=== PATIENT | female | born 1990 | race Caucasian/White ===

== ENCOUNTER → 2018-07-20 | Outpatient (CLI) | payer BC | LOC: COL.CARD 08:41 | DX: R00.0 Tachycardia, unspecified (principal); R07.9 Chest pain, unspecified; R42 Dizziness and giddiness ==

== ENCOUNTER → 2019-02-25 | Outpatient (CLI) | payer BC | LOC: SUN.DIA 08:33 | DX: O24.419 Gestational diabetes mellitus in pregnancy, unspecified control (principal); Z3A.20 20 weeks gestation of pregnancy | CPT/HCPCS: G0108 ==

== ENCOUNTER → 2019-03-17 | Outpatient (CLI) | payer BC | LOC: SUN.DIA 15:14 | DX: O24.419 Gestational diabetes mellitus in pregnancy, unspecified control (principal); Z3A.35 35 weeks gestation of pregnancy | CPT/HCPCS: G0108 ==

== ENCOUNTER → 2019-04-07 | Outpatient (CLI) | payer BC | LOC: DIA.ED 08:45 → SUN.DIA 15:01 | DX: O24.419 Gestational diabetes mellitus in pregnancy, unspecified control (principal); Z3A.35 35 weeks gestation of pregnancy | CPT/HCPCS: G0108 ==

== ENCOUNTER 2019-05-11 07:03 | Inpatient (IN) | payer BC ==
[~2019-05-11] VITALS: Ht 165.1 cm; Wt 77.3 kg
[2019-05-11] VITALS (44 sets, daily range): BP systolic 112–157; BP diastolic 57–97; PULSE 78–150; TEMP 97.3–100.2
[2019-05-11] MEDS ORDERED: PRENATAL MVI (07:27)
--- NOTE | 2019-05-11 07:45 | NUR ---
Blood sugar upon admission 91.
[2019-05-11 08:15] LABS: BASO % 0.3 % (0.0-2.0); EOS % 0.3 % (0-4.0); GRAN # 5.5 (1.4-6.5); GRAN % 69.6 % (42.2-75.2); HEMATOCRIT 35.8 % (37.0-47.0); HEMOGLOBIN 12.5 g/dl (12.5-16.0); LYMPH # 1.7 (1.2-3.4); LYMPH % 21.4 % (20.0-51.0); MEAN CELL VOLUME 88 fl (80.0-100.0); MEAN CORPUSCULAR HEMOGLOBIN 31 pg (27.0-31.0); MEAN CORPUSCULAR HGB CONC 35 g/dl (33.0-37.0); MEAN PLATELET VOLUME 12.2 fl (7.4-10.4); MONO # 0.6 (0.1-0.6); MONO % 7.9 % (1.7-9.3); PLATELET COUNT 173 K/mm3 (130-400); RED BLOOD COUNT 4.06 M/mm3 (4.10-5.30); REDCELL DISTRIBUTION WIDTH-CV 12.4 % (11.5-14.5)
--- NOTE | 2019-05-11 10:20 | NUR ---
BS 69. Apple juice given.
--- NOTE | 2019-05-11 12:48 | NUR ---
BS 79
--- NOTE | 2019-05-11 14:00 | NUR ---
Pt sitting upright to replace epidural. Difficulty tracing FHR due to maternal position. RN at bedside. FHR audible. 1412-Test dose administered by Barb Page CRNA. No adverse effects noted.
--- NOTE | 2019-05-11 14:45 | NUR ---
BS 92
--- NOTE | 2019-05-11 18:53 | NUR ---
1545- Patient 10cm at this time. 1645- Initial push. 182- Bedside shift report received from Thom Gorman RN. Dr. oFnseca at bedside, ready for vaginal delivery. 184- Oral temperature 100.2 at this time. 185- Spontaneous delivery of viable male . Cord pH collected. No gases. 1855- Spontaneous delivery of intact placenta, pitocin infusing at 333cc/hr. 1858- Methergine 0.2 given IM route on left outer thigh per Dr. oFnseca orders. 190- remains skin to skin with patient. Apgars 8,9,9 per nursery nurse. Patient bleeding WNL per Dr. Fonseca, fundus F/U/scant flow no clots. 2nd degree laceration repaired per Dr. Fonseca.
[2019-05-12] VITALS: BP 138/79; PULSE 81; TEMP 98.7
[2019-05-12 04:00] VITALS: BP 110/78; PULSE 69; TEMP 97.7
[2019-05-12 08:55] VITALS: BP 118/72; PULSE 79; TEMP 98.5
--- NOTE | 2019-05-12 10:37 | NUR ---
Initial visit attempt; Family resting, Caustic Loader left card of congratulations for the of their son along with information regarding the availability of spiritual care around the clock at [facility].
[2019-05-12 16:53] VITALS: BP 118/65; PULSE 85; TEMP 98.1
[2019-05-12 19:35] VITALS: BP 128/66; PULSE 84; TEMP 98.2
[2019-05-13 06:48] VITALS: BP 112/56; PULSE 68; TEMP 97.8
[2019-05-13] MEDS ORDERED: MOTRIN 600600 MG/TAB PO (08:20)
[2019-05-13] MEDS ORDERED: PERCOCET 325 MG1 TA2 PO (08:21)
== END 2019-05-13 12:55 | disposition home or self-care (01) | DRG 807 ==
LOC: LDR 07:03 → OB 22:24
PROVIDERS: ADMIT Obstetrics & Gynecology
PROC: 10E0XZZ Delivery of Products of Conception, External Approach (ICD-10-PCS; principal; 2019-05-11)
PROC: 0KQM0ZZ Repair Perineum Muscle, Open Approach (ICD-10-PCS; 2019-05-11)
PROC: 10907ZC Drainage of Amniotic Fluid, Therapeutic from Products of Conception, Via Natural or Artificial Opening (ICD-10-PCS; 2019-05-11)
PROC: 3E033VJ Introduction of Other Hormone into Peripheral Vein, Percutaneous Approach (ICD-10-PCS; 2019-05-11)
DX: O24.420 Gestational diabetes mellitus in childbirth, diet controlled (principal); Z37.0 Single live birth; O99.824 Streptococcus B carrier state complicating childbirth; O70.1 Second degree perineal laceration during delivery; O69.1XX0 Labor and delivery complicated by cord around neck, with compression, not applicable or unspecified; Z3A.39 39 weeks gestation of pregnancy
CPT/HCPCS: J2210; J2400; J2405; J2540; J2590; J7120

== ENCOUNTER → 2019-05-18 | Outpatient (CLI) | payer BC ==
[~2019-05-18] MED LIST: MOTRIN 600600 MG/TAB PO; PERCOCET 325 MG1 TA2 PO; PRENATAL MVI
--- NOTE | 2019-05-18 12:44 | NUR ---
Pt, Keira Martinez, presents to walk in clinic with 7 day old baby boy, Stephania Martinez, for a evaluation and to try to latch without the nipple shield. Stephania was born on [birth year] by and weighed 8#4.3oz (3750 gms). Pt had to use nipple shield for latch difficulty. Stephania was seen by Dr. Greer yesterday and his weight was reported to be 7#11.5oz. Today Stephania weighs 7#10.8oz (3482 gms). Pt reports voids and stools are WNL, milk supply is established, pt wearing shells between feedings and is leaking. Pt attempts, with LC help, to latch baby without nipple but unsuccessfull. Baby breastfeeds bilaterally with shield and has a post feed gain of 40gms. POC: Pt advised to continue every 2-3 hours, or more on demand. Consider supplement with about 1oz EBM after breastfeedings that Stephania is not content. Pump after to have supplement as needed. F/U: Two days with this LC. Questions invited and answered.
== END ==
LOC: LAC 10:37
DX: Z39.1 Encounter for care and examination of lactating mother (principal); Z71.89 Other specified counseling

== ENCOUNTER → 2019-05-20 | Outpatient (CLI) | payer BC ==
--- NOTE | 2019-05-20 13:28 | NUR ---
Pt, Keira Martinez, presents for outpatient consult with 9 day old baby boy, Stephania Martinez and her spouse, Conner Martinez. They are being seen because Stephania had a low weight and intake at the walk-in clinic two days ago. Stephania was born on [birth year] by and weighed 8#4.3oz (3751 gms). At his doctor appt on 05/17/19 he weighed 7#11.5oz, and at clinic on 05/18/19 he weighed 7#10.8oz. Pt is using a nipple shield for feedings. Pt was advised to breastfeed, consider pumping and supplementing at feeding Stephania did not act content after, as he was nursing quite frequently. Today Stephania weighs 7#15.9oz, for a gain of 5.1oz over the last 2 days. Pt states she has not pumped or supplemented Stephania. She has continued with the nipple shield, states she feels breast fullness, and that Stephania has and an increase in voids and stools. At this feeding pt is instructed on latching without nipple shield; he latches pretty easily when pt compresses areola into Stephania's mouth and helps keep his jaw open a bit wider. After without the nipple shield Stephania had a weight gain of 1.9oz (54 gms). POC: Continue ad abbe. F/U: Anticipate at clinic on 05/25/19. Questions invited and answered.
== END ==
LOC: LAC 12:56
DX: Z39.1 Encounter for care and examination of lactating mother (principal); Z71.89 Other specified counseling

== ENCOUNTER → 2019-05-25 | Outpatient (CLI) | payer BC ==
--- NOTE | 2019-05-25 19:00 | NUR ---
Pt, Keira Martinez, present to walk-in clinic with 14 day old baby boy, Stephania Martinez for a evaluation since weaning from the nipple shield. Stephania was born on [birth year] and weighed 8#4.3oz. He was seen at clinic on 05/18/19 and he weighed 7#10.8oz. His intake per pre and post feed weights was 40gms. He returned for a consult on 05/20/19, weighing 7#15.9oz. We were able to get him to nurse without the nipple shield and he had a transfer of 1.9oz. Today Stephania weighs 8#10.9oz (3936 gms). He has been nursing without the shield. After nursing today Stephania had a post feed gain of 3.1oz. POC: continue ad abbe. Consider pumping and bottle introduction at 3-4 weeks of age to prepare for return to work. F/U: Walk in clinic as desired, [employer] as scheduled for well baby exams. Questions invited and answered.
== END ==
LOC: LAC 10:42
DX: Z39.1 Encounter for care and examination of lactating mother (principal); Z71.89 Other specified counseling

== ENCOUNTER → 2019-06-01 | Outpatient (CLI) | payer BC ==
--- NOTE | 2019-06-01 12:10 | NUR ---
Pt, Keira Martinez presents to walk-in clinic with 3 week old baby boy, Stephania Martinez, for a weight check. Stephania was born on [birth year] and weighed 8#4.3oz. They have been followed in the clinic as Stephania initially had a slow weight gain and he was needing to use nipple shield. They have weaned from the shield and are direct latching each feeding. Today Stephania weighs 9#11.9oz, for a gain of 1#1oz over the last week. Questions about plugged milk duct answered. POC: Continue BF ad abbe, consider pumping to save milk for working. F/U: Stephania has his one month appt next week, clinic as desired.
== END ==
LOC: OLC 11:48
DX: Z39.1 Encounter for care and examination of lactating mother (principal); Z71.89 Other specified counseling

== ENCOUNTER 2020-07-29 18:14 | Emergency (ER) | payer BC ==
[~2020-07-29] VITALS: Ht 165.1 cm; Wt 70.5 kg
[2020-07-29 19:00] LABS: BASO # 0.1 (0.0-0.2); BASO % 0.4 % (0.0-2.0); EOS # 0.1 (0.0-0.7); EOS % 0.5 % (0-4.0); HEMATOCRIT 41.4 % (37.0-47.0); HEMOGLOBIN 14.2 g/dl (12.5-16.0); LYMPH # 2.6 (1.2-3.4); LYMPH % 18.9 % (20.0-51.0); MEAN CELL VOLUME 88 fl (80.0-100.0); MEAN CORPUSCULAR HEMOGLOBIN 30 pg (27.0-31.0); MEAN CORPUSCULAR HGB CONC 34 g/dl (33.0-37.0); MEAN PLATELET VOLUME 9.5 fl (7.4-10.4); MONO # 0.8 (0.1-0.6); MONO % 5.8 % (1.7-9.3); PLATELET COUNT 314 K/mm3 (130-400); RED BLOOD COUNT 4.72 M/mm3 (4.10-5.30); REDCELL DISTRIBUTION WIDTH-CV 11.7 % (11.5-14.5)
[2020-07-29 19:24] LABS: BILIRUBIN,TOTAL 0.3 mg/dL (0.0-1.0); CALCIUM 9.4 mg/dL (8.4-10.2); CREATININE, serum 0.84 (0.52-1.25); POTASSIUM 3.5 mmol/L (3.4-5.0); TOTAL PROTEIN 8.3 gm/dL (6.4-8.2)
[2020-07-29 19:54] LABS: TSH w REFLEX 1.52 uIU/mL (0.465-4.680)
[2020-07-29 19:58] LABS: COLLECTION METHOD CLEAN CATCH
[2020-07-29 20:05] LABS: PH 6 (5-8); SQUAMOUS EPITHELIAL 0-2 /hpf; URINE APPEARANCE Clear; URINE BACTERIA Rare /hpf; URINE BILIRUBIN Negative (NEGATIVE); URINE BLOOD Negative (NEGATIVE); URINE COLOR Straw; URINE GLUCOSE Negative (NEGATIVE); URINE KETONE Trace (NEGATIVE); URINE LEUKOCYTE ESTERASE Negative (NEGATIVE); URINE NITRATE Negative (NEGATIVE); URINE PROTEIN(semi-quant) Negative (NEGATIVE); URINE RBC 0-2 /hpf; URINE UROBILINOGEN Negative (NEGATIVE)
[2020-07-29 21:00] VITALS: BP 111/73; PULSE 86; TEMP 98.6
== END 2020-07-29 21:10 | disposition home or self-care (01) ==
LOC: COL.ER 18:14
PROVIDERS: Emergency Medicine
DX: R00.2 Palpitations (principal); R00.0 Tachycardia, unspecified; R07.9 Chest pain, unspecified; R42 Dizziness and giddiness; Z32.02 Encounter for pregnancy test, result negative; Z82.49 Family history of ischemic heart disease and other diseases of the circulatory system; Z79.810 Long term (current) use of selective estrogen receptor modulators (SERMs)
CPT/HCPCS: J1885; J7030

== ENCOUNTER 2021-12-27 12:24 | Emergency (ER) | payer OTHER ==
[~2021-12-27] VITALS: Ht 165.1 cm; Wt 75.9 kg
[2021-12-27 12:46] VITALS: TEMP 99.4
[2021-12-27 12:51] LABS: COLLECTION METHOD CLEAN CATCH
[2021-12-27 12:57] LABS: MUCOUS Present (NOT PRESENT); PH 6 (5-8); URINE APPEARANCE Clear (CLEAR/HAZY); URINE BACTERIA Rare /hpf (NONE SEEN); URINE BILIRUBIN Negative (NEGATIVE); URINE BLOOD Negative (NEGATIVE); URINE COLOR Yellow (YELLOW); URINE GLUCOSE Negative (NEGATIVE); URINE KETONE 2+ (NEGATIVE); URINE LEUKOCYTE ESTERASE Negative (NEGATIVE); URINE NITRATE Negative (NEGATIVE); URINE PROTEIN(semi-quant) Negative (NEGATIVE); URINE RBC 0-2 /hpf (0-2); URINE UROBILINOGEN Negative (NEGATIVE)
[2021-12-27 13:24] LABS: BASO % 0.4 % (0.0-2.0); EOS # 0.1 K/mm3 (0.0-0.7); EOS % 0.6 % (0.0-4.0); GRAN # 8.3 K/mm3 (1.4-6.5); GRAN % 82.9 % (42.2-75.2); HEMOGLOBIN 10.4 g/dl (12.5-16.0); LYMPH # 0.7 K/mm3 (1.2-3.4); LYMPH % 6.6 % (20.0-51.0); MEAN CELL VOLUME 87 fl (80.0-100.0); MEAN CORPUSCULAR HEMOGLOBIN 31 pg (27-31); MEAN CORPUSCULAR HGB CONC 35 g/dl (33.0-37.0); MONO # 0.9 K/mm3 (0.1-0.6); MONO % 9.1 % (1.7-9.3); PLATELET COUNT 251 K/mm3 (130-400); RED BLOOD COUNT 3.37 M/mm3 (4.10-5.30); REDCELL DISTRIBUTION WIDTH-CV 12.5 % (11.5-14.5)
[2021-12-27 13:25] LABS: HEMATOCRIT 29.4 % (37.0-47.0)
[2021-12-27 13:38] LABS: BILIRUBIN,TOTAL 0.2 mg/dL (0.2-1.2); CALCIUM 8.3 mg/dL (8.4-10.2); CREATININE, serum 0.58 mg/dL (0.57-1.11); POTASSIUM 3.5 mmol/L (3.5-4.5); TOTAL PROTEIN 6.7 gm/dL (6.2-8.1)
--- NOTE | 2021-12-27 13:45 | NUR ---
Pt seen in the ED while being treated for influenza. Pt is G2L1 26 weeks due April 01, [address] Lamb. Pt denies any contractions, leaking of fluid or vaginal bleeding and reports normal movement. EFM and toco monitors started. See monitor flowsheet for details.
[2021-12-27 16:10] VITALS: BP 113/71; PULSE 117
== END 2021-12-27 16:10 | disposition home or self-care (01) ==
LOC: COL.ER 12:24
PROVIDERS: Family Medicine
DX: R05.9 Cough, unspecified (principal)
CPT/HCPCS: J7120

== ENCOUNTER 2022-03-22 14:02 | Inpatient (IN) | payer OTHER ==
[~2022-03-22] VITALS: Ht 165.1 cm; Wt 74.1 kg
[2022-03-27] VITALS (25 sets, daily range): BP systolic 116–152; BP diastolic 58–92; PULSE 75–100; TEMP 97.1–98.3
--- NOTE | 2022-03-27 12:10 | NUR ---
Presents to L&D for scheduled induction of labor. Accompanied by mother and spouse. Ambulatory to unit.
--- NOTE | 2022-03-27 12:35 | NUR ---
here. AROM @ 1238, clear fluid noted. Pit start @ 2mU/min @ 1238 after noting Category I strip, as reviewed and confirmed by .
[2022-03-27 12:41] LABS: BASO % 0.3 % (0.0-2.0); EOS # 0.1 K/mm3 (0.0-0.7); EOS % 0.8 % (0.0-4.0); GRAN # 4.6 K/mm3 (1.4-6.5); GRAN % 63.6 % (42.2-75.2); HEMOGLOBIN 10.1 g/dl (12.5-16.0); LYMPH % 28.3 % (20.0-51.0); MEAN CELL VOLUME 86 fl (80.0-100.0); MEAN CORPUSCULAR HEMOGLOBIN 29 pg (27-31); MEAN CORPUSCULAR HGB CONC 34 g/dl (33.0-37.0); MEAN PLATELET VOLUME 11.7 fl (7.4-10.4); MONO # 0.5 K/mm3 (0.1-0.6); MONO % 6.4 % (1.7-9.3); PLATELET COUNT 245 K/mm3 (130-400); RED BLOOD COUNT 3.44 M/mm3 (4.10-5.30); REDCELL DISTRIBUTION WIDTH-CV 12.1 % (11.5-14.5)
[2022-03-27 12:44] LABS: HEMATOCRIT 29.7 % (37.0-47.0)
--- NOTE | 2022-03-27 12:45 | NUR ---
Repositioned to wedged left.
[2022-03-27 13:00] LABS: ALBUMIN 2.7 gm/dL (3.5-5.0); BILIRUBIN,TOTAL 0.4 mg/dL (0.2-1.2); CALCIUM 8.9 mg/dL (8.4-10.2); CREATININE, serum 0.6 mg/dL (0.57-1.11); POTASSIUM 4.1 mmol/L (3.5-4.5); TOTAL PROTEIN 6.8 gm/dL (6.2-8.1)
[2022-03-27] MEDS ORDERED: NORMODYNE100 MG PO (13:18)
--- NOTE | 2022-03-27 13:20 | NUR ---
Rates pain of contractions, "4-5" on scale of 1-10. Feels as though she could handle contractions at a "7-8" before requesting epidural.
--- NOTE | 2022-03-27 13:28 | NUR ---
Assisted onto birthing ball following return from BR.
[2022-03-27 13:36] LABS: COLLECTION METHOD CLEAN CATCH
[2022-03-27 14:06] LABS: MUCOUS Present (NOT PRESENT); PH 7 (5-8); URINE APPEARANCE Hazy (CLEAR/HAZY); URINE BACTERIA Rare /hpf (NONE SEEN); URINE BILIRUBIN Negative (NEGATIVE); URINE BLOOD 3+ (NEGATIVE); URINE COLOR Yellow (YELLOW); URINE GLUCOSE Negative (NEGATIVE); URINE KETONE Negative (NEGATIVE); URINE LEUKOCYTE ESTERASE Negative (NEGATIVE); URINE NITRATE Negative (NEGATIVE); URINE PROTEIN(semi-quant) 1+ (NEGATIVE); URINE UROBILINOGEN Negative (NEGATIVE); URINE WBC 0-2 /hpf (0-2)
--- NOTE | 2022-03-27 14:18 | NUR ---
Breathing through contractions; note patient BP slightly elevated at this time. Will continue to monitor. Note patient chace regularly every 2 to 2.5 minutes with significant discomfort. Will leave pitocin at current rate unless on next SVE cervix unchanged.
--- NOTE | 2022-03-27 14:45 | NUR ---
Requests epidural. LR bolus begun. Kahlil Nunes CRNA, notified. He states he will be en route.
--- NOTE | 2022-03-27 15:05 | NUR ---
Sitting up for epidural placement.
--- NOTE | 2022-03-27 15:06 | NUR ---
Time out performed prior to epidural placement.
--- NOTE | 2022-03-27 15:10 | NUR ---
Single shot dose administered by QUILL STRIPPER. No adverse effects noted. Tolerates procedure well.
--- NOTE | 2022-03-27 16:10 | NUR ---
C/O feeling increased rectal pressure. Repeat SVE C/+2. Straight cathed at this time for 300 mL urine return. Room set up for delivery. Awaiting arrival before beginning pushing efforts. Kahlil Nunes CRNA, administers bolus dose via epidural catheter.
--- NOTE | 2022-03-27 16:16 | NUR ---
ure here for delivery.
--- NOTE | 2022-03-27 16:17 | NUR ---
First push attempt with instruction.
--- NOTE | 2022-03-27 16:20 | NUR ---
cuts midline episiotomy.
--- NOTE | 2022-03-27 16:21 | NUR ---
1621: Spontaneous vaginal delivery of head rapidly followed by shoulders by . Male directly to maternal abdomen. Delayed cord clamping by . Doubly clamped by , cord cut by father of baby with instruction from . 1631: Spontaneous vaginal delivery of placenta by . Pit bolus begun immediately following at 333mU/min.
--- NOTE | 2022-03-27 16:25 | NUR ---
repairs 2nd degree midline episiotomy with 2-[address]1.
--- NOTE | 2022-03-27 19:10 | NUR ---
Up to BR for first time post delivery. Able to spontaneously void. Leena care provided. Ice pack, tucks, leena pad, mesh underwear provided. Ambulates to room 219 without difficulty. Steady gait noted.
[2022-03-28 04:00] VITALS: BP 113/67; PULSE 69; TEMP 97.8
[2022-03-28] MEDS ORDERED: IBU800 M1 PO (08:28)
[2022-03-28 08:36] VITALS: BP 120/76; PULSE 72; TEMP 97.7
--- NOTE | 2022-03-28 09:22 | NUR ---
Initial visit; Parents thanked Community Ambassador for offering congratulations and God's blessings for the of their son. Community Ambassador thanked family for choosing [facility].
[2022-03-28 12:53] LABS: MEAN CELL VOLUME 86 fl (80.0-100.0); MEAN CORPUSCULAR HGB CONC 34 g/dl (33.0-37.0); MEAN PLATELET VOLUME 11.7 fl (7.4-10.4); PLATELET COUNT 226 K/mm3 (130-400); RED BLOOD COUNT 3.11 M/mm3 (4.10-5.30); REDCELL DISTRIBUTION WIDTH-CV 11.9 % (11.5-14.5)
[2022-03-28 12:56] LABS: HEMATOCRIT 26.6 % (37.0-47.0); HEMOGLOBIN 9.1 g/dl (12.5-16.0); MEAN CORPUSCULAR HEMOGLOBIN 29 pg (27-31)
[2022-03-28 13:13] LABS: ALBUMIN 2.3 gm/dL (3.5-5.0); BILIRUBIN,TOTAL 0.3 mg/dL (0.2-1.2); CALCIUM 8.5 mg/dL (8.4-10.2); CREATININE, serum 0.67 mg/dL (0.57-1.11); POTASSIUM 4.2 mmol/L (3.5-4.5); TOTAL PROTEIN 5.7 gm/dL (6.2-8.1)
[2022-03-28 17:00] VITALS: BP 127/77; PULSE 69; TEMP 97.7
--- NOTE | 2022-03-28 18:20 | NUR ---
1819- REPORT RECEIVED, CARE ASSUMED. PT WAITING ON DISMISSAL. 1849- NURSE TO BEDSIDE. PT UPDATES NURSE ON CURRENT FEEDING AND READY FOR DISMISSAL. 1914- DISMISSAL INSTRUCTIONS GIVEN AND PT VERBALIZES UNDERSTANDING. PAPER WORK SIGNED. BANDS CUT. 1919- PT DISMISSED TO HOME AMBULATORY. ACCOMPANIED TO EXIT WITH BABY BY STAFF.
== END 2022-03-28 19:20 | disposition home or self-care (01) | DRG 807 ==
LOC: LDR 03-27 12:04 → OB 03-27 12:04 → LDR 03-27 13:39 → OB 03-27 19:10 → LDR 03-28 14:02 → OB 03-28 19:20
PROVIDERS: ADMIT Student in an Organized Health Care Education/Training Program
PROC: 10E0XZZ Delivery of Products of Conception, External Approach (ICD-10-PCS; principal; 2022-03-27)
PROC: 0KQM0ZZ Repair Perineum Muscle, Open Approach (ICD-10-PCS; 2022-03-27)
PROC: 3E033VJ Introduction of Other Hormone into Peripheral Vein, Percutaneous Approach (ICD-10-PCS; 2022-03-27)
PROC: 10907ZC Drainage of Amniotic Fluid, Therapeutic from Products of Conception, Via Natural or Artificial Opening (ICD-10-PCS; 2022-03-27)
PROC: 0W8NXZZ Division of Female Perineum, External Approach (ICD-10-PCS; 2022-03-27)
DX: O10.92 Unspecified pre-existing hypertension complicating childbirth (principal); Z37.0 Single live birth; Z3A.39 39 weeks gestation of pregnancy; Z86.16 Personal history of COVID-19; O70.1 Second degree perineal laceration during delivery
CPT/HCPCS: J2400; J2590; J7120